=== PATIENT | female | born 1990 | race Caucasian/White ===

== ENCOUNTER 2021-10-13 06:19 | Inpatient (IN) | payer OTHER ==
[~2021-10-13] VITALS: Ht 170.2 cm; Wt 86.6 kg
[2021-10-13] MEDS ORDERED: HUMULIN N100 UNIT/2 (08:50)
[2021-10-13] MEDS ORDERED: HUMULIN R100 UNIT/1 (08:51)
[2021-10-13] MEDS ORDERED: GLYBURIDE2.5 MG (10:10)
== END 2021-10-15 13:39 | disposition home or self-care (01) | DRG 807 ==
LOC: LDR 06:19 → SURG-SUITE 06:19
PROVIDERS: ADMIT Specialist; ATTEND Specialist
PROC: 10E0XZZ Delivery of Products of Conception, External Approach (ICD-10-PCS; principal; 2021-10-13)
PROC: 4A1HXCZ Monitoring of Products of Conception, Cardiac Rate, External Approach (ICD-10-PCS; 2021-10-13)
PROC: 0UQGXZZ Repair Vagina, External Approach (ICD-10-PCS; 2021-10-13)
DX: O71.4 Obstetric high vaginal laceration alone (principal); Z37.0 Single live birth; Z3A.38 38 weeks gestation of pregnancy; Z20.822 Contact with and (suspected) exposure to COVID-19